=== PATIENT | female | born 1985 | race Caucasian/White ===

== ENCOUNTER 2020-02-22 13:07 | Outpatient (CLI) | payer OTHER, SELFPAY ==
[2020-02-22 13:37] LABS: Hematocrit 42.1 % (37.0-47.0); Hemoglobin 13.9 g/dL (12.0-15.0)
== END 2020-02-22 13:08 | disposition home or self-care (01) ==
PROVIDERS: Anesthesiology; Visit Provider Obstetrics & Gynecology
DX: N93.9 Abnormal uterine and vaginal bleeding, unspecified (principal)
CPT/HCPCS: 36415; 85014; 85018

== ENCOUNTER 2020-02-29 00:15 | Outpatient (CLI) | payer OTHER, SELFPAY ==
[2020-02-29 15:54] LABS: SARS-CoV-2 RNA PCR Negative
== END 2020-02-29 00:16 | disposition home or self-care (01) ==
LOC: ANHCOVIDDT 00:15
PROVIDERS: Visit Provider Obstetrics & Gynecology
DX: Z01.812 Encounter for preprocedural laboratory examination (principal); Z11.59 Encounter for screening for other viral diseases
CPT/HCPCS: 87635; C9803; U0003

== ENCOUNTER 2020-03-03 04:11 | Day surgery (SDC) | payer OTHER, SELFPAY ==
[2020-02-20 14:58] VITALS: BMI 23.2
--- NOTE | 2020-02-29 13:06 | HP_ITS ---
DATE OF SERVICE: 03/03/2020 Surgery is scheduled for March 03. HISTORY OF PRESENT ILLNESS: The patient is a 34-year-old G0, who has known endometriosis based on prior surgeries who has been having pelvic pain. She was unable to start Orilissa, because it was denied by her insurance, so she tried Aviane oral contraceptive instead. She took two full moons worth and did have resolution of intermenstrual bleeding. The periods were still heavy and painful even on oral contraceptives. She takes oxycodone, the first 1 to 2 days of her cycle every month. She also had breast tenderness and spots on her legs that looked like bruises, those did resolve when she stops oral contraceptive on January 29. She denies dyspareunia. Since she has been on oral contraceptives that usually does have that when she is off them. She has pelvic pain on the right greater than the left, but it is bilateral. She is interested in hysterectomy for definitive therapy for endometriosis. MEDICAL HISTORY: Negative. CURRENT MEDICATIONS: None. ALLERGIES: NO KNOWN DRUG ALLERGIES. SURGICAL HISTORY: Benign breast lumpectomy. 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 OB HISTORY: She has never been . SOCIAL HISTORY: Negative for tobacco or drug use. She occasionally drinks alcohol. [employer] HISTORY: Negative for abnormal Pap or STD. FAMILY HISTORY: Negative for gynecologic malignancy. REVIEW OF SYSTEMS: Negative. PHYSICAL EXAMINATION: VITAL SIGNS: She is afebrile with normal vital signs. GENERAL: No apparent distress. HEART: Regular rate and rhythm. LUNGS: Clear to auscultation. ABDOMEN: Soft, nontender, nondistended PELVIC: Uterus normal size, nontender, mobile, smooth. Adnexa bilaterally tender with no palpable mass. IMAGING: Pelvic ultrasound shows normal uterus and a complex left ovarian cyst, likely hemorrhagic cyst that measures 26 x 19 x 21 mm. Right ovary absent. ASSESSMENT AND PLAN: Complex left ovarian cyst, pelvic pain and known endometriosis. She has failed oral contraceptives and is taking opioid pain medications on her periods. She now opts and signed consent for total laparoscopic hysterectomy, bilateral salpingectomy and left oophorectomy after the risks, benefits, complications, and alternatives were discussed. We discussed standard surgical risks as well as removing her remaining ovary, this will put her into menopause. We discussed possible symptoms such as hot flashes, night sweats, vaginal dryness, dyspareunia, decreased libido, and increased risk for osteoporosis. She expressed understanding and wishes to proceed. D I MT: Emory
[2020-03-03] VITALS (14 sets, daily range): BP systolic 98–110; BP diastolic 57–81; PULSE 67–84; RESP 15–20; TEMP 36.6–36.9; O2SAT 95–100
[2020-03-03] MEDS: LACTATED RINGERS 1,000 ML 30 ML IV CONT ×2 (10:30→14:15)
--- NOTE | 2020-03-03 11:03 | WPDANESEPPF ---
Anes - Initial Pre Proc Eval Procedure: Operation Date: 03/03/20 12:00 Proposed Procedures p Total Laparoscopic Hysterectomy, Bilateral Salpingectomy, Left Oophorectomy - Lauren Bob MD Date/Time: 03/03/20 11:03 Surgeon: Lauren Bob MD Pre Op Diagnosis: Left Side Ovarian Cyst, Endometriosis Patient Data Age: 34 Gender: F Height: 5 ft 3 in Weight: 58.7 kg Last Vital Signs Temp 98.2 F 03/03/20 10:40 Pulse 82 03/03/20 10:40 Resp 16 03/03/20 10:40 BP 107/68 03/03/20 10:40 Pulse Ox 99 03/03/20 10:40 Allergies Allergy/AdvReac Type Severity Reaction Status Date / Time No Known Allergies Allergy Verified 03/03/20 10:07 Home Medications Medication Instructions Recorded Confirmed Type oxycodone 5 mg PO MONTHLY PRN 02/20/20 03/03/20 History Patient hx anesthesia problems: none Family hx anesthesia problems: none [facility] Past Medical History Medical History (Updated 03/03/20 @ 11:02 by Meño Emanuel MD) Mitral valve prolapse has palpitations on occasion Anes - Eval Final PreProcedure Day of Procedure 03/03/20 11:03 Patient weight: normal Heart: regular rate and rhythm Lungs: clear to auscultation Airway: Mallampati scale class II Neurological: alert and oriented Last oral intake: >/= 8 hours ASA classification: II Emergent: no Anesthesia type and monitoring: general ETT and standard monitoring Informed Consent: The patient's anesthetic plan and its attendant risks and benefits were discussed with the patient/family/POA. Questions were solicited and answers provided to the satisfaction of the patient/family/POA.
--- NOTE | 2020-03-03 11:36 | SUR.PREOP ---
Up to bathroom.
--- NOTE | 2020-03-03 12:07 | WPDHPUPDATE1 ---
History and Physical Update Update Date/Time: 03/03/20 12:07 History and Physical has been reviewed, including an updated exam of the patient. There are NO changes in the patient's condition. Risks, benefits, and alternatives have been discussed and questions answered. Patient agrees to proceed with procedure.
[2020-03-03] MEDS: ceFAZolin 2 GM/D5W 50 ML 2 GM/50 ML BAG IVPB (12:25)
--- NOTE | 2020-03-03 12:46 | PM.OP ---
Procedure Note - Brief Procedure Note - Brief Date of procedure: 03/03/20 Pre-op diagnosis: Left Side Ovarian Cyst, Endometriosis pelvic pain, left ovarian cyst, endometriosis Post-op diagnosis: same Procedure performed: TLH, bilateral salpingectomy, left oophorectomy Anesthesia: [facility] Surgeon: Lauren Bob MD Estimated blood loss (mL): 40 Drains: Yes (Issa) Packing: No Pathology: yes Complications: No immediate complications Condition: stable Disposition: PACU Findings: Normal uterus, left tube and ovary, absent right tube and ovary; endometriosis implants near right round ligament and left uterosacral ligament, peritoneal window in cul-de-sac; normal appendix and liver
[2020-03-03] MEDS: BUPIVACAINE/EPINEPHRINE 0.5% 30 ML VIAL INFILTRATE (13:12)
--- NOTE | 2020-03-03 16:00 | PC.NURSE ---
Addendum entered by Diamond Marcos RN 03/03/20 16:01: Pt. received onto unit at 1526. Original Note: This patient, Fanny Okeefe, was received from PACU on 03/03/20 at 1526. Personal belongings list checked and signed. Patient/family oriented to unit policies and routines
[2020-03-03] MEDS: KETOROLAC 30 MG/ML VIAL (*BKC) IV PUSH ×2 (16:54→22:21)
[2020-03-03] MEDS: LACTATED RINGERS 1,000 ML 125 ML (16:55)
[2020-03-03] MEDS: SIMETHICONE 80 MG TAB.CHEW PO (17:02)
[2020-03-03] MEDS: ONDANSETRON INJ 4 MG/2 ML VIAL IV PUSH (17:02)
--- NOTE | 2020-03-03 18:52 | OP_ITS ---
DATE OF PROCEDURE: 03/03/2020 PREOPERATIVE DIAGNOSES: Endometriosis, pelvic pain, complex left ovarian cyst. POSTOPERATIVE DIAGNOSES: Endometriosis, pelvic pain, complex left ovarian cyst. PROCEDURE PERFORMED: Total laparoscopic hysterectomy, left salpingo-oophorectomy. ANESTHESIA: General endotracheal tube. ESTIMATED BLOOD LOSS: 40 mL. COMPLICATIONS: None. FINDINGS: Normal uterus and fallopian tube. Cystic left ovary. Absent right tube and ovary. Normal liver and appendix. Endometriosis implants seen near the insertion of the right round ligament and near the left uterosacral ligament. Peritoneal window in the cul-de-sac. INDICATIONS: A 34-year-old G0, who has known endometriosis based on prior surgeries and has been having an increase in pelvic pain. She has recently been on oral contraceptives to help with her irregular bleeding, but her periods are still heavy and painful even on oral contraceptives to the point where she has been taking oxycodone on the first 1 to 2 days of her cycle and she has dyspareunia. She does not tolerate the oral contraceptives well. She has breast tenderness and spots on her legs. She has opted for definitive therapy in the form of hysterectomy for endometriosis. DESCRIPTION OF PROCEDURE: For the procedure, she was taken to the operating room where general anesthesia was obtained. She was prepared and draped in the normal sterile fashion in the dorsal lithotomy position. Marcaine was injected infraumbilically and a 5 mm skin incision was made in the infraumbilical fold with a scalpel. A 5 mm non-bladed trocar was then placed with the camera in the trocar under direct visualization into the peritoneal cavity. Insufflation was begun. She was placed in Trendelenburg and a 5 mm trocar was placed in the left lower quadrant and 10 mm trocar in the right lower quadrant under direct visualization. Inspection of the pelvis revealed the findings as noted above. First, the left infundibulopelvic ligament was grasped, coagulated and transected using the Harmonic Scalpel and the mesosalpinx serially clamped and transected and the left round ligament. The bladder flap was then created from the left side and the uterine artery was skeletonized. Attention was then turned to the right side, where the right round ligament was divided. The bladder flap was created from the right side and the bladder flap was pushed down further with the laparoscopic grasper. The right uterine artery was skeletonized, clamped, coagulated, and transected using the Harmonic Scalpel with excellent hemostasis visualized. Another couple of bites were taken down the broad ligament until the level of the uterosacral ligament had been reached. The left uterine artery and was then clamped, coagulated, and transected. Several bites were taken down the broad ligament until the level of uterosacral ligament was reached. The uterosacral ligaments were divided on both sides. A sponge stick was placed in the vagina and pushed against the anterior cul-de-sac. Harmonic Scalpel was used to make a colpotomy incision against sponge stick, and then the vagina was circumferentially incised using the Harmonic Scalpel hugging against cervix until the uterus and cervix were completely free of the surrounding vaginal tissue. The cervix and uterus were pressed down as far as possible into the vaginal canal. Attention was then turned to the vagina where a speculum was placed. The cervix was grasped with a tenaculum and the uterus, tubes and ovaries were brought easily through the vagina. A moist blue towel was then placed in the vagina to help hold the pneumoperitoneum. Attention was then turned back to the abdomen. The vaginal cuff was reapproximated using 0-Vicryl interrupted sutures placed laparoscopically. The
[2020-03-04 00:30] VITALS: BP 89/47; PULSE 72; RESP 18; TEMP 37.1; O2SAT 97
[2020-03-04 05:00] VITALS: BP 107/68; PULSE 73; RESP 18; TEMP 37.2; O2SAT 98
[2020-03-04] MEDS: ONDANSETRON INJ 4 MG/2 ML VIAL IV PUSH (05:05)
[2020-03-04 05:54] LABS: Basophils Percent Auto 0.1 % (0.2-1.2); Hematocrit 38.3 % (37.0-47.0); Hemoglobin 12.7 g/dL (12.0-15.0); Immature Granulocyte Absolute 0.03 K/mm3 (0.00-0.031); Immature Granulocyte Percent A 0.3 % (0-0.5); Lymphocytes Absolute Auto 2.03 K/mm3 (0.9-3.2); Lymphocytes Percent Auto 22.7 % (18.3-44.2); Mean Corpuscular HGB Conc 33.2 g/dl (32-36); Mean Corpuscular Hemoglobin 29.2 pg (26-34); Mean Platelet Volume 11.3 fl (7.4-10.4); Monocytes Absolute Auto 0.9 K/mm3 (0.1-0.6); Monocytes Percent Auto 9.9 % (2.6-8.5); Platelet Count Result 250 k/mm3 (150-375); Red Blood Count 4.35 M/mm3 (4.2-5.4); Red Cell Distribution Width 14.1 % (11.5-14.5); White Blood Count 8.9 K/mm3 (4.5-10.0)
[2020-03-04 06:14] LABS: Blood Urea Nitrogen 5 mg/dL (7-17); Calcium 8.3 mg/dL (8.4-10.2); Carbon Dioxide 26 mmol/L (22-30); Chloride 107 mmol/L (98-107); Estimated CRCL calculation 93 ml/min; Estimated Glomerular Filt Rate > 60; Glucose 93 mg/dL (65-105); Potassium 3.7 mmol/L (3.4-5.0); Sodium 137 mmol/L (137-145)
--- NOTE | 2020-03-04 07:49 | P.PNAN_ITS ---
Anes - Prog Note Post-Op Date/Time: 03/04/20 07:49 Cardiovascular status: normal Respiratory status: normal Airway patency: baseline Mental status: baseline Post-Op hydration status: normal Vital Signs: Last Vital Signs Temp 37.2 C 03/04/20 05:00 Pulse 73 03/04/20 05:00 Resp 18 03/04/20 05:00 BP 107/68 03/04/20 05:00 Pulse Ox 98 03/04/20 05:00 I/O: Intake & Output 03/03/20 03/03/20 03/04/20 15:59 23:59 07:59 Intake Total 1150 1150 Output Total 40 2300 Balance 1110 -1150 Laboratory Tests 03/04/20 04:59 03/04/20 04:59 03/04/20 03/04/20 04:59 04:59 WBC 8.9 RBC 4.35 Hgb 12.7 Hct 38.3 MCV 88.0 MCH 29.2 MCHC 33.2 RDW 14.1 Plt Count 250 MPV 11.3 H Immature Gran % (Auto) 0.3 Neut % (Auto) 67.0 Lymph % (Auto) 22.7 [place] % (Auto) 9.9 H Eos % (Auto) 0.0 Baso % (Auto) 0.1 L Lymph # (Auto) 2.03 [place] # (Auto) 0.9 H Eos # (Auto) 0.0 Baso # (Auto) 0.0 Abs Immat Gran (auto) 0.03 Absolute Neuts (auto) 6.0 Absolute Nucleated RBC 0.0 Nucleated RBC % 0.0 Sodium 137 Potassium 3.7 Chloride 107 Carbon Dioxide 26 BUN 5 L Creatinine 0.60 L Estim Creat Clear Calc 93 Estimated GFR > 60 Glucose 93 Calcium 8.3 L Post-procedural complaints: none Patient Feedback: Patient satisfied with anesthetic care.
--- NOTE | 2020-03-04 07:54 | PM.GYNPNOP ---
EDITOR BOOK - A/P Postoperative Procedures: Procedures Operation Date: 03/03/20 12:00 Actual Procedures Side Surgeon p Total Laparoscopic Hysterectomy, Left Salpingectomy, Left Oophorectomy Not Applicable Lauren Bob MD Postoperative day: 1 Postoperative status: doing well Postoperative plan: routine post-op care and discharge (Follow up in 1 week) Time Spent With Patient Time: Total time spent is greater than 50% in coordination of care (as documented) at patient's floor/unit and/or counseling patient: Time with patient: less than 15 minutes EDITOR BOOK- PN:Subj Post-Op Subjective Date/time seen: 03/04/20 07:54 Subjective: patient reports feeling better, pain is well controlled, patient is tolerating oral intake, patient reports nausea (and emesis one time. No nausea this am) and other (feels pain in RUQ, relieved with meds) Exam Narrative: Exam Narrative: Incisions without E/D/I Const: General: comfortable and no acute distress Resp: Auscultation: clear to auscultation bilaterally Cardio: Rate: regular rate Rhythm: regular rhythm GI: Inspection: non-distended Extrem: General: no calf tenderness and no edema Psych: Mental Status: mental status grossly normal EDITOR BOOK - PN: Obj Data Vital Signs Vital Signs: Vital Signs - 24 hr 03/03/20 10:40 03/03/20 14:14 03/03/20 14:25 Temperature 36.8 C 36.6 C Pulse Rate 82 67 67 Respiratory Rate 16 16 18 Blood Pressure 107/68 103/68 108/71 Pulse Oximetry 99 100 99 03/03/20 14:30 03/03/20 14:45 03/03/20 15:00 Temperature Pulse Rate 75 79 76 Respiratory Rate 15 16 16 Blood Pressure 110/81 107/70 110/67 Pulse Oximetry 99 99 99 03/03/20 15:15 03/03/20 15:30 03/03/20 15:45 Temperature 36.8 C Pulse Rate 82 84 75 Respiratory Rate 16 18 20 Blood Pressure 106/76 109/67 99/59 L Pulse Oximetry 100 100 97 03/03/20 16:00 03/03/20 16:30 03/03/20 17:00 Temperature 36.7 C Pulse Rate 75 74 78 Respiratory Rate 16 20 18 Blood Pressure 98/63 L 99/60 L 106/69 Pulse Oximetry 98 97 97 03/03/20 18:00 03/03/20 19:45 03/04/20 00:30 Temperature 36.9 C 37.1 C Pulse Rate 75 82 72 Respiratory Rate 18 18 18 Blood Pressure 99/57 L 100/62 89/47 L Pulse Oximetry 95 96 97 03/04/20 05:00 Temperature 37.2 C Pulse Rate 73 Respiratory Rate 18 Blood Pressure 107/68 Pulse Oximetry 98 Intake/Output Intake/Output: Intake & Output 03/01/20 03/02/20 03/03/20 03/04/20 23:59 23:59 23:59 23:59 Intake Total 1150 1150 Output Total 40 2300 Balance 1110 -1150 Meds/Results Medications: Active Medications Generic Name Dose Route Start Last Admin Trade Name Freq PRN Reason Stop Dose Admin Hydrocodone Bitart/Acetaminophen 1 tab 03/03/20 15:32 03/04/20 05:06 Camilla 10-325 Mg PO 1 tab Q3H PRN Administration Pain Rated 7 or Greater Dextrose/Lactated Ringer's 1,000 mls @ 125 mls/hr 03/03/20 15:32 Dextrose 5%/Lactated Ringers IV CONT .Q8H SANDY Ibuprofen 600 mg 03/03/20 15:32 Motrin PO Q6H PRN Cramping Ketorolac Tromethamine 30 mg 03/03/20 16:38 03/03/20 22:21 Toradol Inj IV PUSH 30 mg Q6H PRN Administration Pain Rated 4-6 Metoclopramide HCl 10 mg 03/03/20 15:32 Reglan IV PUSH Q6H PRN Nausea Naloxone HCl 0.1 mg 03/03/20 15:32 Narcan IV PUSH Q2M PRN Respiratory rate less than 10 Ondansetron HCl 4 mg 03/03/20 15:32 03/04/20 05:05 Zofran Inj IV PUSH 4 mg Q6H PRN Administration Nausea Simethicone 80 mg 03/03/20 15:32 03/03/20 17:02 Mylicon PO 80 mg Q2H PRN Administration Gas Labs CBC & Chem 7: 03/04/20 04:59 03/04/20 04:59 Labs: Laboratory Results - last 24 hr 03/04/20 03/04/20 04:59 04:59 WBC 8.9 RBC 4.35 Hgb 12.7 Hct 38.3 MCV 88.0 MCH 29.2 MCHC 33.2 RDW 14.1 Plt Count 250 MPV 11.3 H Immature Gran % (Auto) 0.3 Neut % (Auto) 67.0 Lymph % (Auto) 22.7 [place] % (Auto
[2020-03-04 08:15] VITALS: BP 104/55; PULSE 68; RESP 18; TEMP 37.4; O2SAT 98
[2020-03-04] MEDS: IBUPROFEN 600 MG TABLET PO (10:28)
[2020-03-04] MEDS: SIMETHICONE 80 MG TAB.CHEW PO (10:29)
[2020-03-04 15:34] VITALS: BP 103/61; PULSE 78; RESP 18; TEMP 36.7; O2SAT 100
== END 2020-03-04 15:44 | disposition home or self-care (01) ==
LOC: ANHSURGERY 09:58 → ANHOB2 15:38
PROVIDERS: Visit Provider Obstetrics & Gynecology
PROC: 0UT9FZZ Resection of Uterus, Via Natural or Artificial Opening With Percutaneous Endoscopic Assistance (ICD-10-PCS; CPT 58571; principal; 2020-03-03 12:00)
DX: N80.3 Endometriosis of pelvic peritoneum (principal); N83.12 Corpus luteum cyst of left ovary; Z90.721 Acquired absence of ovaries, unilateral; N80.1 Endometriosis of ovary; R10.2 Pelvic and perineal pain
CPT/HCPCS: 58571; 36415; 80048; 85025; 88307; 99199; A9270; J0131; J0690; J1100; J1170; J1885; J2250; J2405; J2704; J2710; J3010; J7030; J7120